=== PATIENT | female | born 1970 | race Caucasian/White ===

== ENCOUNTER 2016-06-08 22:24 | Emergency (ER) | payer MEDICAID ==
[~2016-06-08] VITALS: Ht 167.6 cm; Wt 59.0 kg
[~2016-06-08 22:24] MED LIST: ALPR2TAB2 PO; ARIP5TAB13 PO; CLOP75TA28 PO; DIPH25CA66 PO; DIVA500T4 PO; FLUD0.1T2 PO; HYDR2TAB27 PO; HYDR50TA69 PO; INSUINJ SC; Insulin Detemir SC; KEP500T PO; LEVO50TA7 PO; LOS50T PO; MET10T PO; METF-312 PO; NOR10T PO; OMEP20TA44; ONDA4TAB8 PO; PHE100C PO; PREG150C PO; SERT-135 PO; SIMV20TA90
[2016-06-09 08:15] VITALS: BP 131/84
[2016-06-09] MEDS ORDERED: HYDROcodone-ACET 5/325MG TAB PO ONE (08:30)
== END 2016-06-09 08:45 | disposition home or self-care (01) ==
LOC: ER 22:28
DX: S93.402A Sprain of unspecified ligament of left ankle, initial encounter (principal); Z87.442 Personal history of urinary calculi; Z86.73 Personal history of transient ischemic attack (TIA), and cerebral infarction without residual deficits; K21.9 Gastro-esophageal reflux disease without esophagitis; Z88.6 Allergy status to analgesic agent; J44.9 Chronic obstructive pulmonary disease, unspecified; I10 Essential (primary) hypertension; E78.5 Hyperlipidemia, unspecified; E11.9 Type 2 diabetes mellitus without complications; I95.9 Hypotension, unspecified; Z86.711 Personal history of pulmonary embolism; Z87.11 Personal history of peptic ulcer disease; Z87.440 Personal history of urinary (tract) infections; F17.210 Nicotine dependence, cigarettes, uncomplicated; Z79.4 Long term (current) use of insulin; W19.XXXA Unspecified fall, initial encounter; Y93.01 Activity, walking, marching and hiking; Y99.8 Other external cause status; Y92.098 Other place in other non-institutional residence as the place of occurrence of the external cause; Z88.0 Allergy status to penicillin; Z79.899 Other long term (current) drug therapy; Z88.1 Allergy status to other antibiotic agents; Z88.8 Allergy status to other drugs, medicaments and biological substances; Z91.013 Allergy to seafood; Z91.018 Allergy to other foods; Z91.09 Other allergy status, other than to drugs and biological substances
CPT/HCPCS: 73610; 93005